=== PATIENT | male | born 1950 | race Caucasian/White ===

== ENCOUNTER 2018-03-15 15:03 | Emergency (ER) | payer MEDICARE, MEDICAID ==
[~2018-03-15] VITALS: Ht 193 cm; Wt 110.8 kg
[2018-03-15 15:45] VITALS: BP 133/84
[2018-03-15] MEDS ORDERED: MIDAZolam 5mg/5ml vial ONE (16:52)
[2018-03-15] MEDS ORDERED: fentaNYL/PF 50MCG/1 ML 2ML syringe ONE (16:52)
== END 2018-03-15 16:57 | disposition home or self-care (01) ==
LOC: ER 15:04
DX: Z02.89 Encounter for other administrative examinations (principal); F17.200 Nicotine dependence, unspecified, uncomplicated
CPT/HCPCS: 99281; J2250; J3010

== ENCOUNTER 2020-10-25 13:28 | Inpatient (IN) | payer MEDICARE, MEDICAID ==
[~2020-10-25] VITALS: Ht 193 cm; Wt 102.2 kg
[~2020-10-25 13:28] MED LIST: ARIP10TA8 PO; CHLO100T16 PO; CIPR-202 PO; DOCU250C40 PO; FLO0.4C PO; FURO40TA4 PO; HALO10TA13 PO; HALO5TAB PO; MEGE40TA5 PO; MULT-381 PO; PALI9TAB PO; POLY17PO10 PO
[2020-10-25 15:36] LABS: BASOPHILS % (AUTO) 0.7 % (0-1); EOSINOPHILS # (AUTO) 0.5 X10'3 (0-0.9); EOSINOPHILS % (AUTO) 7.7 % (0-6); HEMATOCRIT 33.5 % (42.0-52.0); HEMOGLOBIN 11.3 g/dl (14.0-17.9); LYMPHOCYTES # (AUTO) 0.6 X10'3 (1.1-4.8); LYMPHOCYTES % (AUTO) 9.3 % (21-51); MEAN CORPUSCULAR HEMOGLOBIN 31.2 PG (27.0-31.0); MEAN CORPUSCULAR HGB CONC 33.7 g/dL (33.0-36.5); MEAN CORPUSCULAR VOLUME 92.6 FL (78-98); MEAN PLATELET VOLUME 8.3 FL (7.4-10.4); MONOCYTES # (AUTO) 0.3 X10'3 (0-0.9); MONOCYTES % (AUTO) 5.1 % (2-12); NEUTROPHILS # (AUTO) 4.9 X10'3 (1.8-7.7); NEUTROPHILS % (AUTO) 77.2 % (42-75); PLATELET COUNT 130 X10'3 (140-440); RED BLOOD COUNT 3.62 X10'6 (4.70-6.10); RED CELL DISTRIBUTION WIDTH 15.7 % (11.5-14.5); WHITE BLOOD COUNT 6.3 X10'3 (4.5-11.0)
[2020-10-25] MEDS ORDERED: normal saline 1000ML IV soln IVB ONE (15:40)
[2020-10-25 15:52] LABS: ALANINE AMINOTRANSFERASE 19 U/L (12-78); ALBUMIN 1.3 G/DL (3.4-5.0); ALBUMIN/GLOBULIN RATIO 0.3 (1.1-1.5); ALKALINE PHOSPHATASE 219 IU/L (46-116); ANION GAP 8 (8-16); ASPARTATE AMINO TRANSFERASE 26 U/L (10-37); BILIRUBIN,TOTAL 0.2 MG/DL (0.1-1.0); BLOOD UREA NITROGEN 27 MG/DL (7-18); BUN/CREATININE RATIO 18.6 (5.4-32.0); CALCIUM 7.7 MG/DL (8.5-10.1); CHLORIDE 111 MMOL/L (99-107); CREATININE 1.45 MG/DL (0.60-1.10); GLUCOSE 103 MG/DL (70-104); POTASSIUM 3.6 MMOL/L (3.5-5.1); SODIUM 143 MMOL/L (135-145); TOTAL CARBON DIOXIDE 23.7 MMOL/L (24-32); TOTAL PROTEIN 5.1 G/DL (6.4-8.2); eGFR 48 ML/MIN
--- NOTE | 2020-10-25 18:05 | NUR ---
Nimisha MAR attempted to call [facility] regarding discharging patient home. [facility] staff stated that they were told not to accept patient back until they have had a thoracentesis. Nimisha MAR was given phone number for JOH[facility] Freeman and Genaro (mine administrator supervisor) . I then called [facility] who stated also that they would not accept the patient back due to above reason. Also stating that her biomedical engineering supervisor states that patient needs more care and disagrees with the diagnosis and discharge. I stated to her that our ER physician does not feel as though any further tests are indicated for patient that he is discharge ready. She stated well we still can't accept this patient back. I stated that this was abandonment of the patient because he is ready to be discharged back. She stated that she disagreed. I told her that she is going to need to have her biomedical engineering supervisor call the Emergency department and discuss concerns with our ER physician Dr. Tinoco. Because this was not anything we could do at our level and it was not something we as nursing staff get to decide. She stated, "I will see what I can do."
--- NOTE | 2020-10-25 18:40 | NUR ---
[facility] (JOHAN ferrer) called back and again stated that they would not be accepting the patient back due to the medical directors refusal to accept patient. I requested that she have her medical detail representative call our ER physician to discuss patients care. Offered have our physician call their medical detail representative and she stated that she did not feel comfortable giving out that information, at which I understand. Notified Lydia that patient has not exhibited signs and symptoms as described by [facility] staff while in our care and has been resting in bed and in no apparent distress entire visit. Discussed conversation with Dr. Tinoco who stated that when Lydia calls back he would like to speak with her.
[2020-10-25] MEDS ORDERED: iohexol 300mg/ml 100ml inj. ONE (19:33)
[2020-10-25] MEDS ORDERED: potassium Cl 40MEQ/1/2NS 520ml 520 ML IV PRN ×2 (23:30)
[2020-10-25] MEDS ORDERED: ondansetron/PF 4mg/2ml inj IV PRN (23:30)
[2020-10-25] MEDS ORDERED: potassium Cl 20 mEq SR tablet PO PRN (23:30)
[2020-10-26] MEDS ORDERED: CefTRIAXone/D5W-Rocephin 1gm 50 ML IV ONE
[2020-10-26 00:45] VITALS: BP 124/88
[2020-10-26] MEDS: normal saline 1000ml 1,000 ML IV SCH ×2 (01:09→17:09)
[2020-10-26 06:00] VITALS: BP 141/89
--- NOTE | 2020-10-26 06:33 | NUR ---
Problems reprioritized. Patient report given, questions answered & plan of care reviewed with ISABELA Ocampo.
[2020-10-26 06:52] LABS: BASOPHILS % (AUTO) 0.4 % (0-1); EOSINOPHILS # (AUTO) 0.6 X10'3 (0-0.9); EOSINOPHILS % (AUTO) 12.3 % (0-6); HEMATOCRIT 32.7 % (42.0-52.0); HEMOGLOBIN 10.9 g/dl (14.0-17.9); LYMPHOCYTES # (AUTO) 0.4 X10'3 (1.1-4.8); LYMPHOCYTES % (AUTO) 9.1 % (21-51); MEAN CORPUSCULAR HEMOGLOBIN 30.7 PG (27.0-31.0); MEAN CORPUSCULAR HGB CONC 33.4 g/dL (33.0-36.5); MEAN CORPUSCULAR VOLUME 91.9 FL (78-98); MEAN PLATELET VOLUME 7.9 FL (7.4-10.4); MONOCYTES # (AUTO) 0.3 X10'3 (0-0.9); MONOCYTES % (AUTO) 5.3 % (2-12); NEUTROPHILS # (AUTO) 3.5 X10'3 (1.8-7.7); NEUTROPHILS % (AUTO) 72.9 % (42-75); PLATELET COUNT 133 X10'3 (140-440); RED BLOOD COUNT 3.56 X10'6 (4.70-6.10); RED CELL DISTRIBUTION WIDTH 15.5 % (11.5-14.5); WHITE BLOOD COUNT 4.8 X10'3 (4.5-11.0)
[2020-10-26 07:03] LABS: ALANINE AMINOTRANSFERASE 20 U/L (12-78); ALBUMIN 1.3 G/DL (3.4-5.0); ALBUMIN/GLOBULIN RATIO 0.3 (1.1-1.5); ALKALINE PHOSPHATASE 201 IU/L (46-116); ANION GAP 8 (8-16); ASPARTATE AMINO TRANSFERASE 22 U/L (10-37); BILIRUBIN,TOTAL 0.3 MG/DL (0.1-1.0); BLOOD UREA NITROGEN 22 MG/DL (7-18); BUN/CREATININE RATIO 19.5 (5.4-32.0); CALCIUM 7.6 MG/DL (8.5-10.1); CHLORIDE 112 MMOL/L (99-107); CREATININE 1.13 MG/DL (0.60-1.10); GLUCOSE 93 MG/DL (70-104); POTASSIUM 3.4 MMOL/L (3.5-5.1); PREALBUMIN 5.4 MG/DL (19-36); SODIUM 143 MMOL/L (135-145); TOTAL CARBON DIOXIDE 23.5 MMOL/L (24-32); TOTAL PROTEIN 5.4 G/DL (6.4-8.2); eGFR 64 ML/MIN
[2020-10-26] MEDS: K and/or MAG REPLACEMENT MC SCH ×3 (08:00→20:27)
[2020-10-26] MEDS: docusate sod 250mg capsule PO SCH ×2 (08:00→20:33)
[2020-10-26] MEDS ORDERED: megestrol acetate 20mg tablet PO SCH (08:00)
[2020-10-26] MEDS: PALIPERIDONE 3 MG TAB.ER.24 PO SCH (08:00)
[2020-10-26 08:24] LABS: RF TITER 40 IU/ml (Neg); RHEUM FACTOR QUAL REFLEX TITER POSITIVE (Neg)
[2020-10-26 10:00] VITALS: BP 125/71
[2020-10-26] MEDS ORDERED: potassium Cl 20 mEq SR tablet PO PRN ×2 (10:00)
[2020-10-26] MEDS ORDERED: magnesium 4gm in 100ml NS 100 ML IV PRN (10:00)
[2020-10-26] MEDS ORDERED: magnesium Cl slow-release 64mg tablet PO PRN (10:00)
[2020-10-26] MEDS ORDERED: potassium Cl 40MEQ/1/2NS 520ml 520 ML IV PRN (10:00)
[2020-10-26] MEDS ORDERED: iohexol 300 MG/1 ML 50ml polymer ONE (10:21)
--- NOTE | 2020-10-26 10:50 | NUR ---
Unable to reach pt's conservator Alessio Boyd. Spoke with Ovi at [facility] who said he reached out to his school supervisor who said that there is no designated person on the weekends to give consent for procedure by Dr. Mccabe and to follow our hospital policy on consent for situations where it is life threatening or improvement of quality of life. Contacted OR charge nurse regarding this and she said she will contact Dr. Mccabe for further evaluation.
--- NOTE | 2020-10-26 11:57 | NUR ---
Notified by OR that surgery was cancelled d/t inability to contact conservator. Spoke with Dr. Mccabe about pt's inability to void and that no one is able to place a F/C. stated we will keep things as is until conservator can be contacted as the pt has already had this condition for a few years. Hospitalist aware.
[2020-10-26] MEDS: polyethylene glycol 3350 17gm powd pack PO SCH (12:33)
[2020-10-26] MEDS: furosemide 40mg tablet PO SCH (12:33)
[2020-10-26] MEDS: ARIPIPRAZOLE 10 MG TABLET PO SCH (12:34)
[2020-10-26] MEDS: potassium Cl 20 mEq SR tablet PO PRN ×3 (12:34→20:39)
[2020-10-26] MEDS: tamsulosin 0.4mg capsule PO SCH (12:34)
[2020-10-26] MEDS: haloperidol 5mg tablet PO SCH ×2 (12:34→20:33)
--- NOTE | 2020-10-26 17:46 | NUR ---
PAGER ID: [phone] MESSAGE: [phone] [phone] [id number] Tyron. scientific technical writer reported Thrombus in his superficial cephalic.
[2020-10-26 18:00] VITALS: BP 121/80
[2020-10-26] MEDS: megestrol acetate 20mg tablet PO SCH (20:32)
[2020-10-26] MEDS: chlorproMAZINE 25mg tablet PO SCH (20:32)
--- NOTE | 2020-10-26 21:27 | NUR ---
notified MD regarding occlusive thrombus in L cephalic vein - lovenox ordered. also asked for nystatin powder for red maureen and groin.
[2020-10-26 22:00] VITALS: BP 143/85
[2020-10-26] MEDS: enoxaparin 100mg/ml syringe SUBCUT SCH (22:10)
[2020-10-26] MEDS: nystatin 15 GM powder TP SCH (22:10)
[2020-10-26] MEDS: CefTRIAXone/D5W-Rocephin 1gm 50 ML IV SCH (22:10)
[2020-10-27 06:46] LABS: BASOPHILS % (AUTO) 0.5 % (0-1); EOSINOPHILS # (AUTO) 0.5 X10'3 (0-0.9); HEMATOCRIT 34.5 % (42.0-52.0); HEMOGLOBIN 11.5 g/dl (14.0-17.9); LYMPHOCYTES # (AUTO) 0.4 X10'3 (1.1-4.8); LYMPHOCYTES % (AUTO) 10.4 % (21-51); MEAN CORPUSCULAR HEMOGLOBIN 30.7 PG (27.0-31.0); MEAN CORPUSCULAR HGB CONC 33.3 g/dL (33.0-36.5); MEAN CORPUSCULAR VOLUME 92.1 FL (78-98); MEAN PLATELET VOLUME 8.4 FL (7.4-10.4); MONOCYTES # (AUTO) 0.2 X10'3 (0-0.9); MONOCYTES % (AUTO) 4.3 % (2-12); NEUTROPHILS % (AUTO) 72.8 % (42-75); PLATELET COUNT 140 X10'3 (140-440); RED BLOOD COUNT 3.74 X10'6 (4.70-6.10); RED CELL DISTRIBUTION WIDTH 15.3 % (11.5-14.5); WHITE BLOOD COUNT 4.1 X10'3 (4.5-11.0)
--- NOTE | 2020-10-27 06:50 | NUR ---
Patient in room ORTHO 4009. I have received report from Mary MAR and had the opportunity to ask questions and assume patient care.
[2020-10-27 07:08] LABS: ALANINE AMINOTRANSFERASE 20 U/L (12-78); ALBUMIN 1.3 G/DL (3.4-5.0); ALBUMIN/GLOBULIN RATIO 0.3 (1.1-1.5); ALKALINE PHOSPHATASE 240 IU/L (46-116); ANION GAP 8 (8-16); ASPARTATE AMINO TRANSFERASE 34 U/L (10-37); BILIRUBIN,TOTAL 0.3 MG/DL (0.1-1.0); BLOOD UREA NITROGEN 21 MG/DL (7-18); BUN/CREATININE RATIO 20.6 (5.4-32.0); CALCIUM 7.6 MG/DL (8.5-10.1); CHLORIDE 113 MMOL/L (99-107); CREATININE 1.02 MG/DL (0.60-1.10); GLUCOSE 95 MG/DL (70-104); MAGNESIUM 1.7 MG/DL (1.5-2.4); PHOSPHORUS 2.7 MG/DL (2.3-4.5); POTASSIUM 4.3 MMOL/L (3.5-5.1); SODIUM 145 MMOL/L (135-145); TOTAL CARBON DIOXIDE 23.6 MMOL/L (24-32); TOTAL PROTEIN 5.3 G/DL (6.4-8.2); eGFR 72 ML/MIN
[2020-10-27] MEDS: K and/or MAG REPLACEMENT MC SCH ×4 (08:00→19:36)
[2020-10-27 09:00] VITALS: BP 123/73
[2020-10-27] MEDS: docusate sod 250mg capsule PO SCH ×2 (09:22→20:00)
[2020-10-27] MEDS: PALIPERIDONE 3 MG TAB.ER.24 PO SCH (09:22)
[2020-10-27] MEDS: haloperidol 5mg tablet PO SCH ×2 (09:22→20:07)
[2020-10-27] MEDS: furosemide 40mg tablet PO SCH (09:22)
[2020-10-27] MEDS: tamsulosin 0.4mg capsule PO SCH (09:23)
[2020-10-27] MEDS: ARIPIPRAZOLE 10 MG TABLET PO SCH (09:23)
[2020-10-27] MEDS: megestrol acetate 20mg tablet PO SCH ×2 (09:23→20:07)
[2020-10-27] MEDS: enoxaparin 100mg/ml syringe SUBCUT SCH (09:24)
[2020-10-27] MEDS: normal saline 1000ml 1,000 ML IV SCH (09:36)
[2020-10-27] MEDS: nystatin 15 GM powder TP SCH ×3 (09:38→20:11)
[2020-10-27] MEDS: polyethylene glycol 3350 17gm powd pack PO SCH (09:38)
[2020-10-27 12:38] LABS: CARBOHYDRATE ANTIGEN 19-9 24 U/mL (0-35); CARCINOEMBRYONIC ANTIGEN 3.4 ng/mL (0.0-4.7)
[2020-10-27 18:00] VITALS: BP 134/94
--- NOTE | 2020-10-27 18:04 | NUR ---
Problems reprioritized. Patient report given, questions answered & plan of care reviewed with Mary MAR.
[2020-10-27] MEDS: chlorproMAZINE 25mg tablet PO SCH (20:07)
[2020-10-27] MEDS: CefTRIAXone/D5W-Rocephin 1gm 50 ML IV SCH (21:55)
[2020-10-27 22:02] VITALS: BP 155/97
[2020-10-28] VITALS (18 sets, daily range): BP systolic 102–163; BP diastolic 63–101
[2020-10-28] MEDS: normal saline 1000ml 1,000 ML IV SCH ×2 (02:25→19:00)
--- NOTE | 2020-10-28 06:20 | NUR ---
received report from moisés collazo rn
--- NOTE | 2020-10-28 06:30 | NUR ---
Problems reprioritized. Patient report given, questions answered & plan of care reviewed with ISABELA Cisneros.
[2020-10-28 06:55] LABS: BASOPHILS % (AUTO) 0.7 % (0-1); EOSINOPHILS # (AUTO) 0.5 X10'3 (0-0.9); EOSINOPHILS % (AUTO) 14.8 % (0-6); HEMATOCRIT 32.5 % (42.0-52.0); HEMOGLOBIN 10.9 g/dl (14.0-17.9); LYMPHOCYTES # (AUTO) 0.5 X10'3 (1.1-4.8); LYMPHOCYTES % (AUTO) 14.2 % (21-51); MEAN CORPUSCULAR HEMOGLOBIN 31.2 PG (27.0-31.0); MEAN CORPUSCULAR HGB CONC 33.7 g/dL (33.0-36.5); MEAN CORPUSCULAR VOLUME 92.8 FL (78-98); MEAN PLATELET VOLUME 7.9 FL (7.4-10.4); MONOCYTES # (AUTO) 0.2 X10'3 (0-0.9); MONOCYTES % (AUTO) 7.2 % (2-12); NEUTROPHILS % (AUTO) 63.1 % (42-75); PLATELET COUNT 110 X10'3 (140-440); RED CELL DISTRIBUTION WIDTH 15.4 % (11.5-14.5); WHITE BLOOD COUNT 3.2 X10'3 (4.5-11.0)
[2020-10-28 07:39] LABS: ALANINE AMINOTRANSFERASE 21 U/L (12-78); ALBUMIN 1.2 G/DL (3.4-5.0); ALBUMIN/GLOBULIN RATIO 0.3 (1.1-1.5); ALKALINE PHOSPHATASE 220 IU/L (46-116); ANION GAP 10 (8-16); ASPARTATE AMINO TRANSFERASE 33 U/L (10-37); BILIRUBIN,TOTAL 0.3 MG/DL (0.1-1.0); BLOOD UREA NITROGEN 18 MG/DL (7-18); BUN/CREATININE RATIO 18.8 (5.4-32.0); CALCIUM 7.4 MG/DL (8.5-10.1); CHLORIDE 113 MMOL/L (99-107); CREATININE 0.96 MG/DL (0.60-1.10); GLUCOSE 93 MG/DL (70-104); MAGNESIUM 1.8 MG/DL (1.5-2.4); PHOSPHORUS 2.8 MG/DL (2.3-4.5); POTASSIUM 3.8 MMOL/L (3.5-5.1); SODIUM 145 MMOL/L (135-145); TOTAL CARBON DIOXIDE 22.3 MMOL/L (24-32); TOTAL PROTEIN 5.1 G/DL (6.4-8.2); eGFR 77 ML/MIN
[2020-10-28] MEDS: K and/or MAG REPLACEMENT MC SCH ×3 (07:57→20:00)
[2020-10-28] MEDS: polyethylene glycol 3350 17gm powd pack PO SCH (08:11)
[2020-10-28] MEDS: megestrol acetate 20mg tablet PO SCH ×2 (08:11→22:16)
[2020-10-28] MEDS: ARIPIPRAZOLE 10 MG TABLET PO SCH (08:12)
[2020-10-28] MEDS: furosemide 40mg tablet PO SCH (08:14)
[2020-10-28] MEDS: PALIPERIDONE 3 MG TAB.ER.24 PO SCH (08:15)
[2020-10-28] MEDS: docusate sod 250mg capsule PO SCH ×2 (08:15→22:16)
[2020-10-28] MEDS: haloperidol 5mg tablet PO SCH ×2 (08:15→22:16)
[2020-10-28] MEDS: tamsulosin 0.4mg capsule PO SCH (08:16)
[2020-10-28] MEDS: nystatin 15 GM powder TP SCH ×3 (08:22→22:19)
--- NOTE | 2020-10-28 09:00 | NUR ---
spoke w/deon, public guardian, who is covering for patient conservator, she had me fax the general consents for cystoscopy and thoracentesis and told me that she would sign the paperwork and fax the consents back to [facility] neuro floor at [phone] deon's fax is [phone]
[2020-10-28] MEDS ORDERED: fluconazole 150mg tablet PO ONE (09:25)
--- NOTE | 2020-10-28 12:54 | NUR ---
pt is very upset at the fact that he is npo at this time for a surgery, pt is becoming agitated about his surgery and tells me that he 'pees fine' and 'does not need his surgery' nursing staff has explained to him multiple times about his urinary issues and that he is conserved and does not make his own healthcare decisions pt says that he 'wants his iv out' and 'wants to leave', continue to monitor and educate
--- NOTE | 2020-10-28 15:05 | NUR ---
GAVE REPORT TO ISABELA WILLSON IN RECOVERY
[2020-10-28] MEDS ORDERED: iohexol 300 MG/1 ML 50ml polymer ONE (15:10)
[2020-10-28] MEDS ORDERED: methylene blue (5mg/ml) 50mg/10ml ampul IV ONE (15:23)
[2020-10-28] MEDS ORDERED: labetalol 20mg/4ml (5mg/ml) syringe IV PRN (15:40)
[2020-10-28] MEDS ORDERED: proCHLORperazine 10 MG/2 ml inj IV PRN (15:40)
[2020-10-28] MEDS ORDERED: HYDROmorphone/PF 0.2 MG/ML SYRINGE IV PRN (15:40)
[2020-10-28] MEDS ORDERED: ringers solution, lacted 1,000 ML IV SCH (15:40)
[2020-10-28] MEDS ORDERED: hydrALAZINE 20mg/ml inj. IV PRN (15:40)
[2020-10-28] MEDS ORDERED: morphine 2 MG/ML inj. syringe IV PRN (15:40)
[2020-10-28] MEDS ORDERED: acetaminophen 1,000mg/100ml IV 100 ML IV PRN (15:40)
[2020-10-28] MEDS ORDERED: meperidine/PF 25mg/ml syringe IV PRN (15:40)
[2020-10-28] MEDS ORDERED: ondansetron/PF 4mg/2ml inj IV PRN (15:40)
[2020-10-28] MEDS ORDERED: sevoflurane 250ml liquid IH ONE (15:55)
[2020-10-28] MEDS ORDERED: LIDOcaine 2% (20mg/ml) 5ml vial ONE (16:12)
[2020-10-28] MEDS ORDERED: phenylephrine 10mg/ml inj. ONE ×2 (16:12→17:16)
[2020-10-28] MEDS ORDERED: propofol inj 20 ML IV ONE (16:12)
[2020-10-28] MEDS ORDERED: ondansetron/PF 4mg/2ml inj ONE (16:22)
[2020-10-28] MEDS ORDERED: dexamethasone sod phosphate 4mg/ml inj. ONE (16:22)
[2020-10-28] MEDS ORDERED: morphine 4 MG/ML inj SYRINge ONE (17:15)
--- NOTE | 2020-10-28 17:32 | NUR ---
Received from OR via [facility] , accompanied by Anesthesiologist Dr Kasper and report given by Anesthesiolgist. Pt alert vss no distress. bandaid dressing to sp area cdi. cont to monitor Addendum: 10/28/20 at 1822 by Alyson Patton RN Amended: Links added.
--- NOTE | 2020-10-28 18:15 | NUR ---
conservator paperwork in chart, according to or nurse pt will be going back to surgery for extraction of stones, please make sure updated conservator paperwork is in chart for surgery
--- NOTE | 2020-10-28 18:17 | NUR ---
gave report to beatrice cartagena
--- NOTE | 2020-10-28 18:26 | NUR ---
called to give report ISABELA will call back Addendum: 10/28/20 at 1828 by Alyson Patton RN Amended: Links added.
--- NOTE | 2020-10-28 18:40 | NUR ---
rECEIVED REPORT FROM barn hand Rigo Fields. Patient to follow shortly.
--- NOTE | 2020-10-28 18:52 | NUR ---
Pt meet discharge criteria awake alert vss jones to gravity draining bloody urine dressing cdi ns infusing without difficulty. Transfer to room via bed with 2 RNs Addendum: 10/28/20 at 1857 by Alyson Patton RN Amended: Links added.
--- NOTE | 2020-10-28 18:55 | NUR ---
Patient arrived to [facility] via ortho bed and settled back into his room. Post op VS initiated. Pt. denies having any pain/nausea or distress at this time. Pt. rolled and extra blue pads removed. Skin intact . Red bloody urine drainage to catheter bag. Pt.offered ice chips but refused. Will continue to monitor.
[2020-10-28] MEDS: chlorproMAZINE 25mg tablet PO SCH (22:15)
[2020-10-28] MEDS: CefTRIAXone/D5W-Rocephin 1gm 50 ML IV SCH (22:15)
[2020-10-29 02:00] VITALS: BP 133/76
[2020-10-29] MEDS: normal saline 1000ml 1,000 ML IV SCH (03:43)
[2020-10-29 06:00] VITALS: BP 137/79
[2020-10-29 06:22] LABS: BASOPHILS % (AUTO) 0.2 % (0-1); EOSINOPHILS % (AUTO) 0.7 % (0-6); HEMATOCRIT 35.1 % (42.0-52.0); HEMOGLOBIN 11.5 g/dl (14.0-17.9); LYMPHOCYTES # (AUTO) 0.5 X10'3 (1.1-4.8); LYMPHOCYTES % (AUTO) 16.3 % (21-51); MEAN CORPUSCULAR HEMOGLOBIN 30.8 PG (27.0-31.0); MEAN CORPUSCULAR HGB CONC 32.7 g/dL (33.0-36.5); MEAN PLATELET VOLUME 8.1 FL (7.4-10.4); MONOCYTES # (AUTO) 0.3 X10'3 (0-0.9); MONOCYTES % (AUTO) 8.7 % (2-12); NEUTROPHILS # (AUTO) 2.4 X10'3 (1.8-7.7); NEUTROPHILS % (AUTO) 74.1 % (42-75); PLATELET COUNT 105 X10'3 (140-440); RED BLOOD COUNT 3.73 X10'6 (4.70-6.10); RED CELL DISTRIBUTION WIDTH 16.1 % (11.5-14.5); WHITE BLOOD COUNT 3.3 X10'3 (4.5-11.0)
[2020-10-29 06:28] LABS: ALANINE AMINOTRANSFERASE 20 U/L (12-78); ALBUMIN 1.3 G/DL (3.4-5.0); ALBUMIN/GLOBULIN RATIO 0.3 (1.1-1.5); ALKALINE PHOSPHATASE 234 IU/L (46-116); ANION GAP 6 (8-16); ASPARTATE AMINO TRANSFERASE 25 U/L (10-37); BILIRUBIN,TOTAL 0.2 MG/DL (0.1-1.0); BLOOD UREA NITROGEN 18 MG/DL (7-18); BUN/CREATININE RATIO 17.5 (5.4-32.0); CALCIUM 7.6 MG/DL (8.5-10.1); CHLORIDE 113 MMOL/L (99-107); CREATININE 1.03 MG/DL (0.60-1.10); GLUCOSE 115 MG/DL (70-104); MAGNESIUM 1.8 MG/DL (1.5-2.4); PHOSPHORUS 3.4 MG/DL (2.3-4.5); POTASSIUM 4.4 MMOL/L (3.5-5.1); SODIUM 143 MMOL/L (135-145); TOTAL CARBON DIOXIDE 24.5 MMOL/L (24-32); TOTAL PROTEIN 5.5 G/DL (6.4-8.2); eGFR 71 ML/MIN
--- NOTE | 2020-10-29 06:35 | NUR ---
Problems reprioritized. Patient report given, questions answered & plan of care reviewed with Nisha MAR.
[2020-10-29] MEDS: K and/or MAG REPLACEMENT MC SCH (08:00)
[2020-10-29] MEDS: PALIPERIDONE 3 MG TAB.ER.24 PO SCH (08:46)
[2020-10-29] MEDS: docusate sod 250mg capsule PO SCH (08:46)
[2020-10-29] MEDS: ARIPIPRAZOLE 10 MG TABLET PO SCH (08:46)
[2020-10-29] MEDS: haloperidol 5mg tablet PO SCH (08:47)
[2020-10-29] MEDS: furosemide 40mg tablet PO SCH (08:47)
[2020-10-29] MEDS: tamsulosin 0.4mg capsule PO SCH (08:47)
[2020-10-29] MEDS: polyethylene glycol 3350 17gm powd pack PO SCH (08:47)
[2020-10-29] MEDS: megestrol acetate 20mg tablet PO SCH (08:48)
[2020-10-29] MEDS: nystatin 15 GM powder TP SCH (09:02)
[2020-10-29 10:00] VITALS: BP 109/73
[2020-10-29] MEDS ORDERED: CEFD300C3 PO (12:10)
[2020-10-29 16:10] LABS: ANTINUCLEAR ANTIBODIES Positive (Negative)
== END 2020-10-29 14:30 | DRG 671 ==
LOC: ER 13:29 → ED HOLD 23:29 → ORTHO 4S 10-26 00:44
PROVIDERS: ADMIT Internal Medicine; ATTEND Family Medicine
PROC: BT1B1ZZ Fluoroscopy of Bladder and Urethra using Low Osmolar Contrast (ICD-10-PCS; 2020-10-28)
PROC: 0T9B80Z Drainage of Bladder with Drainage Device, Via Natural or Artificial Opening Endoscopic (ICD-10-PCS; 2020-10-28)
PROC: 0T7D0ZZ Dilation of Urethra, Open Approach (ICD-10-PCS; principal; 2020-10-28 15:55)
DX: N32.0 Bladder-neck obstruction (principal); I31.3 Pericardial effusion (noninflammatory); J90 Pleural effusion, not elsewhere classified; R64 Cachexia; N13.30 Unspecified hydronephrosis; N35.919 Unspecified urethral stricture, male, unspecified site; N21.0 Calculus in bladder; E86.0 Dehydration; Z60.2 Problems related to living alone; Z20.822 Contact with and (suspected) exposure to COVID-19; N40.0 Benign prostatic hyperplasia without lower urinary tract symptoms; N42.89 Other specified disorders of prostate; I95.9 Hypotension, unspecified; R32 Unspecified urinary incontinence; Z86.16 Personal history of COVID-19; Z87.891 Personal history of nicotine dependence; Z79.899 Other long term (current) drug therapy; Z68.27 Body mass index [BMI] 27.0-27.9, adult
CPT/HCPCS: 36415; 71045; 71250; 74176; 76000; 76604; 80053; 82378; 83735; 84100; 84134; 84153; 85025; 85651; 86038; 86301; 86430; 86431; 87081; 87635; 93005; 93308; 93971; 96361; 97110; 97161; 97530; 99285; A4402; A4618; A7000; C1758; C1769; C1894; G0378; J0696; J1100; J1650; J2001; J2270; J2370; J2405; J2704; J7030; Q0161; Q9967; Q9968